=== PATIENT | female | born 1935 | race Caucasian/White ===

== ENCOUNTER 2020-05-28 06:47 | Outpatient (CLI) | payer MEDICARE, SELFPAY ==
--- NOTE | 2020-05-28 07:01 | XR_ITS ---
WS: [id number] Exam: XR chest 2V* [id number] Date/Time of Exam: 05/28/2020 7:01 AM Reason For Exam: ESSENTIAL HYPERTENSION Comparison 06/16/2017. The lungs are hyperinflated and clear. Normal cardiomediastinal structures. No pleural effusions. Bon y structures are intact. XR/XR chest 2V* [id number] IMPRESSION: 1. Pulmonary hyperinflation which may indicate COPD. 2. No acute cardiopulmonary finding. No change.
--- NOTE | 2020-05-28 07:01 | USCV_ITS ---
Lindsay Cardozo Age: 85 Gender: F : 1935 Exam Date: 05/28/2020 07:07 Ordering Phys: Blane Lovell MD Technologist: Andrés Ford [place] [facility] [place]: [place]B BP: 151 / 80 HR: 70 Rhythm: Sinus Technical Quality: Adequate MEASUREMENTS (Male / Female) Normal Values 2D ECHO LV Diastolic Diameter PLAX 3.9 cm 4.2 - 5.9 / 3.9 - 5.3 cm LV Systolic Diameter PLAX 2.2 cm IVS Diastolic Thickness 0.8 cm 0.6 - 1.0 / 0.6 - 0.9 cm IVS Systolic Thickness 1.2 cm LVPW Diastolic Thickness 0.9 cm 0.6 - 1.0 / 0.6 - 0.9 cm LVPW Systolic Thickness 1.5 cm LVOT Diameter 2.0 cm LV Ejection Fraction 2D Teich 74.2 % LV Ejection Fraction MOD 2C 62.2 % LV Ejection Fraction 2C AL 60.7 % LA Diameter 3.5 cm LA Width 2.7 cm LA Height 4.0 cm RA Width 2.9 cm RA Height 4.2 cm Aorta at Sinotubular Diameter 1.3 cm M-MODE LV Diastolic Diameter MM 4.7 cm 4.2 - 5.9 / 3.9 - 5.3 cm LV Systolic Diameter MM 3.0 cm LV Ejection Fraction MM Teich 66.7 % IVS Diastolic Thickness MM 1.3 cm 0.6 - 1.0 / 0.6 - 0.9 cm IVS Systolic Thickness MM 1.6 cm LVPW Diastolic Thickness MM 1.5 cm 0.6 - 1.0 / 0.6 - 0.9 cm LVPW Systolic Thickness MM 1.8 cm RV Diastolic Diameter MM 1.1 cm Aortic Annulus Diameter 2.5 cm LA Ao Ratio MM 1.6 MV E Point Septal Separation 1.0 cm DOPPLER AV Peak Velocity 286.3 cm/s LVOT Peak Velocity 121.0 cm/s AV Area Cont Eq vti 1.4 cm squared AV Area Cont Eq pk 1.4 cm squared MV Area PHT 2.6 cm squared Mitral E to A Ratio 1.1 MV E' Velocity 61.0 cm/s Mitral E to MV E' Ratio 15.8 Mitral E to LV E' Lateral Ratio 14.2 Mitral E to LV E' Septal Ratio 18.0 TR Peak Velocity 332.7 cm/s TR Peak Gradient 44.3 mmHg TV Peak E Velocity 71.0 cm/s Right Atrial Pressure 3.0 mmHg Pulmonary Artery Systolic Pressu 47.3 mmHg FINDINGS Left Ventricle Normal left ventricular cavity size. Normal left ventricular systolic function. No regional wall motion abnormalities. Left ventricular ejection fraction is estimated at 66 %. Grade I/IV diastolic dysfunction (abnormal relaxation filling pattern), normal to mildly elevated filling pressures. Right Ventricle The right ventricle is normal in size and function. Moderate pulmonary hypertension, RVSP 47.3 mmHg. Right Atrium The right atrium is normal in size. Left Atrium The left atrium is normal in size. Mitral Valve Structurally normal mitral valve without significant stenosis or prolapse. There is no mitral regurgitation. Aortic Valve Severe aortic valve calcification. Moderate aortic valve stenosis, mean gradient 13.6 mmHg, KATHY 1.4 cm squared. Mild aortic valve regurgitation. Tricuspid Valve Structurally normal tricuspid valve without significant stenosis or regurgitation. Pulmonic Valve Structurally normal pulmonic valve without significant stenosis. There is no pulmonic regurgitation. Pericardium Normal pericardium without effusion. Aorta Normal ascending aorta dimension. CONCLUSIONS 1-Normal left ventricular cavity size. Normal left ventricular systolic function. No regional wall motion abnormalities. Left ventricular ejection fraction is estimated at 66 %. Grade I/IV diastolic dysfunction (abnormal relaxation filling pattern), normal to mildly elevated filling pressures. 2-Severe aortic valve calcification. Moderate aortic valve stenosis, mean gradient 13.6 mmHg, KATHY 1.4 cm squared. Mild aortic valve regurgitation. 3-There is no pericardial effusion. 4-The right ventricle is normal in size and function. Moderate pulmonary hypertension, RVSP 47.3 mmHg. 5-There is no pericardial effusion. 6-Right atrial pressure is around 5 mm of mercury. 7-When compared to the prior echocardiogram dated November 01, 2013 there is moderate aortic stenosis now. Calculated aortic valve area is 1.4 cm squared wide mean gradient is 11.6 mmHg Everton Arzola MD (Electronically Signed) Final Date: 28 May 2020 18:12 S
--- NOTE | 2020-05-28 07:02 | XR_ITS ---
WS: [id number] Exam: XR lumbar spine 2-3V* [id number] Date/Time of Exam: 05/28/2020 7:02 AM Reason For Exam: LUMBAR AND SACRAL SPONDYLARTHRITI Findings: Comparison 03/27/2017. No acute fracture or dislocation. Old compression fracture of the upper plate of L3 noted with about 20% loss of vertebral height and no posterior displacement. Degenerative narrowing of the L1-2 disc s pace with spondylosis. Facet DJD at all levels. Slight levoscoliosis. Osteopenia. DJD of the SI joint s. XR/XR lumbar spine 2-3V* [id number] IMPRESSION: 1. No acute fracture or malalignment. 2. Old compression fracture of L3 without significant posterior displacement. 3. Degenerative changes as above.
== END 2020-05-28 06:48 | disposition home or self-care (01) ==
LOC: US 06:48
PROVIDERS: Visit Provider Family Medicine
DX: I10 Essential (primary) hypertension (principal); M47.817 Spondylosis without myelopathy or radiculopathy, lumbosacral region; R06.02 Shortness of breath; I35.0 Nonrheumatic aortic (valve) stenosis; I27.20 Pulmonary hypertension, unspecified
CPT/HCPCS: 71046; 72100; 93306

== ENCOUNTER → 2020-07-26 10:48 | Outpatient (BNVA) | payer MEDICARE, SELFPAY | PROVIDERS: PCP Nurse Practitioner Family; Visit Provider Nurse Practitioner Family | DX: Z20.828 Contact with and (suspected) exposure to other viral communicable diseases (principal) | CPT/HCPCS: 87635 ==

== ENCOUNTER 2020-07-30 07:17 | Outpatient (CLI) | payer MEDICARE, SELFPAY ==
--- NOTE | 2020-07-30 07:25 | US_ITS ---
WS: [id number] ULTRASOUND RENAL TECHNIQUE: Ultrasound examination of both kidneys. CLINICAL INFORMATION: BACK PAIN WITH RADIATION COMPARISON: None. FINDINGS: RIGHT: Right kidney is slightly smaller compared to the left. Echogenicity: Normal. Mild cortical atrophy Hydronephrosis: None. Perinephric fluid: None. Right kidney measures: 8.7 cm x 5.1 cm x 4.1 cm. LEFT: Left kidney is normal in size and appearance. Echogenicity: Normal. Hydronephrosis: None. Perinephric fluid: None. Left kidney measures: 9.5 cm x 5.0 cm x 4.8 cm. Normal visualized aorta. Normal bladder. US/US renal BI* [id number] IMPRESSION: 1. Mild bilateral renal cortical atrophy. Right kidney is slightly smaller com pared to the left. Otherwise normal renal ultrasound 2. Normal bladder.
--- NOTE | 2020-07-30 07:25 | XRR_ITS ---
PROCEDURE INFORMATION: Exam: XR Thoracolumbar Spine, 2 Views Exam date and time: 07/30/2020 8:38 AM Age: 85 years old Clinical indication: Condition or disease; Other: Spondylarthritis; Additional info: Lumbar sacral spondylarthritis TECHNIQUE: Imaging protocol: XR of the thoracolumbar spine, 2 views. COMPARISON: CR XR lumbar spine 2-3V* [id number] 05/28/2020 7:47 AM FINDINGS: Bones/joints: Osteopenia, degenerative change, and stable L3 compression fracture. Anatomic alignment. Cervical spine fusion. Intraperitoneal space: Status post cholecystectomy. Gastrointestinal tract: Prominent stool. Vasculature: Vascular calcification. XR/XR thoracolumbar junct [id number] IMPRESSION: Osteopenia, degenerative change, and stable L3 compression fracture.
--- NOTE | 2020-07-30 10:31 | PFTS_ITS ---
Date of Study:07/30/20 Date of Dictation: MECHANICS: Forced vital capacity (FVC) is reduced. Forced expiratory volume in one second (FEV1) is reduced. FEV1/FVC is normal. FLOW VOLUME LOOP: Reduced flow at all lung volumes. LUNG VOLUMES: Not measured. DIFFUSING CAPACITY FOR CARBON MONOXIDE: Not measured. INTERPRETATION: The prebronchodilator spirometry is consistent with moderate obstruction. The postbronchodilator spirometry is consistent with mild restriction with a significant postbronchodilator response. The spirometric result is likely very consistent with reversible obstructive airways disease. MTDD
--- NOTE | 2020-07-30 13:34 | PFTS_ITS ---
Date of Study:07/30/2020 Date of Dictation: MECHANICS: Forced vital capacity (FVC) is . Forced expiratory volume in one second (FEV1) is . FEV1/FVC is . FLOW VOLUME LOOP: . LUNG VOLUMES: Total lung capacity (TLC) is . Residual volume (RV) is . DIFFUSING CAPACITY FOR CARBON MONOXIDE: . INTERPRETATION: The pulmonary function tests are . mechanics and lung volumes. Gas exchange (DLCO) is . MTDD
== END 2020-07-30 07:18 | disposition home or self-care (01) ==
PROVIDERS: PCP Nurse Practitioner Family; Visit Provider Nurse Practitioner Family
DX: M47.817 Spondylosis without myelopathy or radiculopathy, lumbosacral region (principal); R06.02 Shortness of breath; M54.89 Other dorsalgia; N26.1 Atrophy of kidney (terminal); M85.80 Other specified disorders of bone density and structure, unspecified site; Z98.1 Arthrodesis status
CPT/HCPCS: 72080; 76770; 94060; J7611

== ENCOUNTER 2020-10-09 14:45 | Outpatient (CLI) | payer MEDICARE, SELFPAY ==
--- NOTE | 2020-10-09 15:00 | MR_ITS ---
WS: [id number] MRI LUMBAR SPINE NONCONTRAST HISTORY: LOW BACK PAIN COMPARISON: None available. TECHNIQUE: Sagittal and axial multisequence imaging is submitted. Marked increase in the cervical lordosis in the upper thoracic kyphosis. Mild to moderate degenerativ e disc disease throughout the cervical and thoracic spine. Focal central disc protrusion at T7-8 caus ing mild contact on the cord. Retrolisthesis of L1, L2 and L3. Most significant retrolisthesis of L1 by 5.2 mm. No acute marrow ashok ma. Remote 20% compression fracture of L3 without retropulsion. Moderate degenerative disc disease at L1-2, L2-3 and to a lesser extent L3-4. Conus terminates normally at L1. L1-L2: Mild annular disc bulge with a central disc protrusion. Disc protrusion extends just to the RI GHT of midline. Mild bilateral foraminal narrowing due to facet joint hypertrophy. L2-L3: Moderate diffuse annular disc bulging with moderate facet and ligamentum flavum hypertrophy. F acet joint arthritis extends into the thecal sac, greatest on the RIGHT. Mild bilateral foraminal susy nosis, greater on the LEFT. Mild subarticular recess stenosis. L3-L4: Diffuse annular disc bulging with ligamentum flavum hypertrophy and facet arthritis. Mild LEFT and moderate RIGHT foraminal stenosis. L4-L5: Diffuse annular disc bulging. Shallow central disc protrusion. Mild bilateral lateral recess s tenosis and foraminal stenosis. L5-S1: Shallow central disc protrusion. No contact on the nerve roots. Nerve roots are becoming becoming clumped within the thecal sac beginning at the L3-4 level. MR/MR lumbar spine wo con* [id number] IMPRESSION: 1. Remote 20% compression fracture L3. 2. Mild retrolisthesis of L1, L2 and L3, most significant involving L1 by 5.2 mm. 3. Moderate RIGHT foraminal stenosis and mild LEFT at L3-4. 4. Mild bilateral lateral recess and foraminal stenosis at L4-5. Mild bilatera l foraminal stenosis at L1-2 and L2-3. 5. Shallow central disc protrusion at L4-5 and L5-S1.
--- NOTE | 2020-10-09 15:00 | XR_ITS ---
WS: [id number] LATERAL LUMBAR SPINE: 3 view. Lateral radiographs are performed in upright neutral, flexion and extension to the patient's toleranc e. HISTORY: LOW BACK PAIN COMPARISON: 05/28/2020 L3 compression fracture by 20%. Retrolisthesis of L1, L2 and L3. Most significant retrolisthesis by 5 mm of L1. Moderate degenerative disc space narrowing at L1-2, L2-3 and mild at L3-4. With flexion an d extension there is no significant change in the retrolisthesis. Moderate atherosclerosis abdominal aorta. Marked facet joint arthritis at L4-5 and L5-S1. XR/XR lumbar spine f/e only [id number] IMPRESSION: 1. Retrolisthesis of L1, L2 and L3. With flexion and extension there is no sig nificant change in the alignment. 2. 20% L3 compression fracture.
== END 2020-10-09 14:46 | disposition home or self-care (01) ==
PROVIDERS: PCP Family Medicine; Visit Provider Nurse Practitioner
DX: S32.030A Wedge compression fracture of third lumbar vertebra, initial encounter for closed fracture (principal); X58.XXXA Exposure to other specified factors, initial encounter
CPT/HCPCS: 72120; 72148

== ENCOUNTER 2022-03-20 12:19 | Outpatient (CLI) | payer MEDICARE, SELFPAY ==
--- NOTE | 2022-03-20 12:50 | USCV_ITS ---
Lindsay Cardozo Age: 87 Gender: F : 1935 Exam Date: 03/20/2022 12:59 Ordering Phys: Adan Sommers MD Technologist: Gregg Crouch Exam Location: [facility] – [place] Indication: localized swelling of left lower extremity PROCEDURES: Venous duplex imaging was performed in only the left lower extremity. The following venous structures were evaluated: common femoral vein, profunda vein, proximal portion of the greater saphenous vein, superficial femoral vein, and the popliteal vein. In addition, the posterior tibial and peroneal trunk were evaluated. Serial compression, augmentation maneuvers, and spectral Doppler flow evaluation were performed. FINDINGS: Normal 2-D Doppler and augmentation and compressibility throughout the lower extremity venous structures. Additional imaging through the proximal calf veins also reveals no thrombus. Limited evaluation of the greater saphenous vein is patent with no thrombus.. CONCLUSIONS No evidence of left lower extremity DVT. Dylon Mcguire MD (Electronically Signed) Final Date: 20 March 2022 17:56 S
== END 2022-03-20 12:20 | disposition home or self-care (01) ==
LOC: RAD 12:20
PROVIDERS: PCP Family Medicine; Visit Provider Family Medicine
DX: R22.42 Localized swelling, mass and lump, left lower limb (principal)
CPT/HCPCS: 93971

== ENCOUNTER → 2023-11-24 11:10 | Outpatient (BNVA) | payer MEDICARE, SELFPAY | PROVIDERS: PCP Family Medicine; Visit Provider Podiatrist Foot & Ankle Surgery | DX: L60.3 Nail dystrophy; M72.2 Plantar fascial fibromatosis | CPT/HCPCS: 99203 ==

== ENCOUNTER → 2023-12-21 09:55 | Outpatient (BNVA) | payer MEDICARE, SELFPAY | PROVIDERS: PCP Family Medicine; Referring Provider Family Medicine; Visit Provider Anesthesiology Pain Medicine | DX: M48.061 Spinal stenosis, lumbar region without neurogenic claudication | CPT/HCPCS: 99204 ==